=== PATIENT | female | born 1975 | race Two or more races ===

== ENCOUNTER 2017-12-03 12:33 | Emergency (ER) | payer OTHER ==
[~2017-12-03] VITALS: Ht 170.2 cm; Wt 59.9 kg
== END 2017-12-03 15:53 | disposition home or self-care (01) ==
LOC: ER 12:33
DX: S80.212S Abrasion, left knee, sequela (principal); S80.211S Abrasion, right knee, sequela; W10.8XXS Fall (on) (from) other stairs and steps, sequela